=== PATIENT | male | born 1985 | race Caucasian/White ===

== ENCOUNTER 2022-05-01 16:03 | Emergency (ER) | payer BC ==
[~2022-05-01] VITALS: Ht 170.2 cm; Wt 86.2 kg
[2022-05-01 16:05] VITALS: BP_SYST 163
--- NOTE | 2022-05-01 16:05 | NUR ---
BROUGHT BACK TO BED #3 AND TRIAGED .REPORT GIVEN TO RANDAL
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
--- NOTE | 2022-05-01 16:30 | NUR ---
ER Dr. Galdamez at bedside examining patient.
[2022-05-01 16:54] VITALS: BP_SYST 163
--- NOTE | 2022-05-01 16:54 | NUR ---
Patient given written and verbal discharge instructions and verbalizes understanding. ER MD discussed with patient the results and treatment provided. Patient in stable condition. ID arm band removed. Patient educated on pain management and to follow up with PMD. Pain Scale 0/10 Opportunity for questions provided and answered.
== END 2022-05-01 16:54 | disposition home or self-care (01) ==
LOC: SED 16:03
DX: R20.2 Paresthesia of skin (principal); Z79.899 Other long term (current) drug therapy
CPT/HCPCS: 99281